=== PATIENT | male | born 1980 | race Caucasian/White ===

== ENCOUNTER 2017-04-16 02:04 | Emergency (ER) | payer OTHER ==
[~2017-04-16] VITALS: Ht 185.4 cm; Wt 91.5 kg
[~2017-04-16 02:04] MED LIST: Maalox, Mylanta PO; PRILOSEC20 MG PO; Protonix IV; Ultram PO
[2017-04-16 05:18] VITALS: BP 116/78
== END 2017-04-16 05:20 ==
LOC: EME 02:04
PROC: 0HQGXZZ Repair Left Hand Skin, External Approach (ICD-10-PCS; principal; 2017-04-16)
DX: S61.412A Laceration without foreign body of left hand, initial encounter (principal); W26.8XXA Contact with other sharp object(s), not elsewhere classified, initial encounter; Y92.143 Cell of prison as the place of occurrence of the external cause; Y99.8 Other external cause status; K21.9 Gastro-esophageal reflux disease without esophagitis; Z87.891 Personal history of nicotine dependence
CPT/HCPCS: 99281; 99284